=== PATIENT | male | born 1960 | race Caucasian/White ===

== ENCOUNTER 2020-02-26 22:58 | Emergency (ER) | payer SELFPAY ==
[2020-02-26 23:54] LABS: BASOPHIL 0.6 % (0-2); EOSINOPHIL 3.6 % (0-5); HCT 43.2 % (42.0-52.0); HGB 13.9 g/dl (13.2-18.0); MCHC 32.2 g/dL (32.0-36.0); MCV 93.3 fL (78.0-100.0); MONOCYTE 7.7 % (0-12); MPV 9.7 fL (6.0-9.5); NEUTROPHIL 62.6 % (41-80); NRBC 0; PLT 262 K/uL (150-400); RBC 4.63 M/uL (4.70-6.00); WBC 10.9 K/uL (4.0-10.5)
[2020-02-27 00:09] LABS: ALBUMIN 3.2 g/dL (3.4-5.0); BILIRUBIN - TOTAL 0.2 mg/dL (0.2-1.0); BUN/CREAT RATIO (CALC) 23.5 RATIO; CREATININE 0.85 mg/dL (0.67-1.17); GLOBULIN (CALCULATION) 3.4 g/dL; POTASSIUM 4.1 mmol/L (3.5-5.1); TOTAL PROTEIN 6.6 g/dL (6.4-8.2)
[2020-02-27 00:22] LABS: BILIRUBIN NEGATIVE (NEGATIVE); BLOOD 3+ Ery/uL (NEGATIVE); CLARITY CLOUDY (CLEAR); COLOR RED (YELLOW); GLUCOSE (U) 1+ mg/dL (NORMAL); LEUKOCYTES 2+ Leu/uL (NEGATIVE); NITRITE POSITIVE (NEGATIVE); PROTEIN 3+ mg/dL (NEGATIVE); UROBILINOGEN >=8.0 mg/dL (0.2-1.0)
[2020-02-27 00:23] LABS: SQUAMOUS EPITHELIAL CELLS RARE; URINARY RBC TNTC
[2020-02-27] MEDS ORDERED: NORCO 5-325 TA1 EACH PO (02:02)
[2020-02-27] MEDS ORDERED: KEFLEX500 MG PO (02:02)
[2020-02-27] MEDS ORDERED: FLOMAX 0.4 MG0.4 MG PO (02:02)
[2020-02-29 13:07] LABS: CHLAMYDIA TRACHOMATIS, NAA Negative (Negative); NEISSERIA GONORRHOEAE, NAA Negative (Negative)
== END 2020-02-27 02:22 | disposition home or self-care (01) ==
LOC: FER 22:58
PROVIDERS: Emergency Medicine Emergency Medical Services
DX: N30.01 Acute cystitis with hematuria (principal); N20.0 Calculus of kidney; F17.210 Nicotine dependence, cigarettes, uncomplicated; Z87.442 Personal history of urinary calculi; Z98.890 Other specified postprocedural states
CPT/HCPCS: 36415; 80053; 81001; 85025; 87088; 87491; 87591; J0696; J1885; J7030

== ENCOUNTER 2020-09-07 20:48 | Emergency (ER) | payer SELFPAY ==
[~2020-09-07 20:48] MED LIST: FLOMAX 0.4 MG0.4 MG PO; KEFLEX500 MG PO; NORCO 5-325 TA1 EACH PO
[2020-09-07 22:16] LABS: BASOPHIL 0.8 % (0-2); EOSINOPHIL 2.5 % (0-5); HCT 39.9 % (42.0-52.0); HGB 12.6 g/dl (13.2-18.0); LYMPHOCYTE 34.8 % (15-48); MCH 27.6 pg (25.0-31.0); MCHC 31.6 g/dL (32.0-36.0); MCV 87.5 fL (78.0-100.0); MONOCYTE 8.2 % (0-12); MPV 9.8 fL (6.0-9.5); NEUTROPHIL 53.3 % (41-80); NRBC 0; PLT 244 K/uL (150-400); RBC 4.56 M/uL (4.70-6.00); RDW 15.1 % (11.5-14.0); WBC 8.5 K/uL (4.0-10.5)
[2020-09-07 22:18] LABS: BILIRUBIN NEGATIVE (NEGATIVE); BLOOD 1+ Ery/uL (NEGATIVE); COLOR YELLOW (YELLOW); GLUCOSE (U) NORMAL (NORMAL); LEUKOCYTES 1+ Leu/uL (NEGATIVE); NITRITE POSITIVE (NEGATIVE); PROTEIN TRACE (LOW) mg/dL (NEGATIVE); SPECIFIC GRAVITY >=1.030 (1.001-1.030); UROBILINOGEN 0.2 mg/dL (0.2-1.0)
[2020-09-07 22:21] LABS: CLARITY HAZY (CLEAR)
[2020-09-07 22:24] LABS: URINARY WBC 20-50
[2020-09-07 22:25] LABS: BACTERIA 3+
[2020-09-07 22:35] LABS: ALBUMIN 3.2 g/dL (3.4-5.0); BILIRUBIN - TOTAL 0.2 mg/dL (0.2-1.0); BUN/CREAT RATIO (CALC) 21.4 RATIO; CREATININE 0.98 mg/dL (0.67-1.17); GLOBULIN (CALCULATION) 3.8 g/dL; POTASSIUM 4.1 mmol/L (3.5-5.1)
[2020-09-08] MEDS ORDERED: BACTRIM DS TAB1 EACH PO (03:07)
[2020-09-08] MEDS ORDERED: NORCO 5-325 TA1 EACH PO (03:07)
== END 2020-09-08 03:24 | disposition home or self-care (01) ==
LOC: FER 20:48
PROVIDERS: Emergency Medicine
DX: N39.0 Urinary tract infection, site not specified (principal); N13.2 Hydronephrosis with renal and ureteral calculous obstruction
CPT/HCPCS: 36415; 80053; 81001; 85025; J0696; J2270; J2405; J7030; Q9967

== ENCOUNTER 2021-05-05 07:51 | Emergency (ER) | payer OTHER ==
[~2021-05-05 07:51] MED LIST changes: +BACTRIM DS TAB1 EACH PO
[2021-05-05 09:19] LABS: BASOPHIL 0.7 % (0-2); EOSINOPHIL 0.7 % (0-5); HCT 48.6 % (42.0-52.0); HGB 15.7 g/dl (13.2-18.0); LYMPHOCYTE 15.8 % (15-48); MCH 29.7 pg (25.0-31.0); MCHC 32.3 g/dL (32.0-36.0); MONOCYTE 10.5 % (0-12); MPV 9.5 fL (6.0-9.5); NEUTROPHIL 71.1 % (41-80); NRBC 0; PLT 222 K/uL (150-400); RBC 5.28 M/uL (4.70-6.00); RDW 13.6 % (11.5-14.0); WBC 8.6 K/uL (4.0-10.5)
[2021-05-05 09:34] LABS: ALBUMIN 3.8 g/dL (3.4-5.0); BILIRUBIN - TOTAL 0.3 mg/dL (0.2-1.0); BUN/CREAT RATIO (CALC) 15.4 RATIO; CREATININE 1.04 mg/dL (0.67-1.17); POTASSIUM 4.3 mmol/L (3.5-5.1); TOTAL PROTEIN 7.8 g/dL (6.4-8.2)
[2021-05-05 09:57] LABS: LACTIC ACID 0.6 mmol/L (0.4-1.9)
[2021-05-05 10:15] LABS: BILIRUBIN NEGATIVE (NEGATIVE); BLOOD NEGATIVE Ery/uL (NEGATIVE); CLARITY CLOUDY (CLEAR); COLOR YELLOW (YELLOW); GLUCOSE (U) NORMAL (NORMAL); LEUKOCYTES 2+ Leu/uL (NEGATIVE); NITRITE NEGATIVE (NEGATIVE); PROTEIN 3+ mg/dL (NEGATIVE); SPECIFIC GRAVITY <=1.005 (1.001-1.030); UROBILINOGEN 0.2 mg/dL (0.2-1.0); pH >=9.0 (5.0-9.0)
[2021-05-05 10:28] LABS: BACTERIA 4+; SQUAMOUS EPITHELIAL CELLS RARE
[2021-05-05 10:29] LABS: TRIPLE PHOSPHATE CRYSTALS LARGE
[2021-05-05] MEDS ORDERED: NORCO 5-325 TA1 EACH PO (11:33)
[2021-05-05] MEDS ORDERED: AMOX TR-K CLV1 EAC4 PO (11:33)
[2021-05-05] MEDS ORDERED: ONDANSETRON ODT4 MG PO (11:33)
== END 2021-05-05 12:17 | disposition home or self-care (01) ==
LOC: FER 07:51
PROVIDERS: Emergency Medicine
DX: N39.0 Urinary tract infection, site not specified (principal); F17.210 Nicotine dependence, cigarettes, uncomplicated; Z88.5 Allergy status to narcotic agent
CPT/HCPCS: 36415; 80053; 81001; 83605; 83690; 84145; 85025; 87040; 87088; J1170; J2405; J2543; J7030; Q9967

== ENCOUNTER 2021-10-11 18:50 | Emergency (ER) | payer OTHER ==
[~2021-10-11 18:50] MED LIST changes: +AMOX TR-K CLV1 EAC4 PO; +ONDANSETRON ODT4 MG PO
[2021-10-11 20:55] LABS: BILIRUBIN NEGATIVE (NEGATIVE); BLOOD NEGATIVE Ery/uL (NEGATIVE); CLARITY CLEAR (CLEAR); COLOR YELLOW (YELLOW); GLUCOSE (U) NORMAL (NORMAL); LEUKOCYTES 1+ Leu/uL (NEGATIVE); NITRITE POSITIVE (NEGATIVE); PROTEIN NEGATIVE (NEGATIVE); SPECIFIC GRAVITY 1.025 (1.001-1.030); UROBILINOGEN 0.2 mg/dL (0.2-1.0)
[2021-10-11 21:08] LABS: BACTERIA 3+
== END 2021-10-11 21:44 | disposition left against medical advice (07) ==
LOC: FER 18:50
PROVIDERS: Internal Medicine
DX: M54.9 Dorsalgia, unspecified (principal); R10.9 Unspecified abdominal pain; R82.998 Other abnormal findings in urine; Z53.29 Procedure and treatment not carried out because of patient's decision for other reasons; Z88.5 Allergy status to narcotic agent
CPT/HCPCS: 81001; 87088; 99281